=== PATIENT | female | born 1950 | race Caucasian/White ===

== ENCOUNTER → 2016-09-02 | Outpatient (CLI) | payer MEDICARE, BC ==
[~2016-09-02] MED LIST: CALC600T86 PO; MULT-185 PO
--- NOTE | 2016-09-02 16:23 | DI ---
EXAM: MRI LUMBAR SPINE W/O CONTRAST LOCATION OF DICTATION: [place] HISTORY: ITS.REASON: M54.16 RADICULOPATHY COMPARISON: No prior studies available for comparison. TECHNIQUE: Multiple contiguous axial and sagittal MRI images and sequences were obtained of the lumbar spine without contrast. FINDINGS: There is preservation of lumbar lordosis. There is no evidence for subluxation. There are no acute fractures. Vertebral body height is maintained. Mild Modic type changes are demonstrated at the L1-2 level. There is multilevel degenerative disc disease with loss of disc space height and signal.The prevertebral and paraspinal soft tissues are within normal limits. The conus medullaris extends to the L1-L2 level. There is a nonspecific 1.6 cm hypointense nodule involving the posterior aspect of the right kidney. The signal characteristics are not typical for a cyst. Recommend renal ultrasound to further evaluate and exclude neoplasm. Segmental analysis: At the T12-L1 level there is a central disc protrusion resulting in moderate effacement of the ventral thecal sac and spinal cord and moderate central spinal stenosis. At the L1-L2 level there is broad-based disc bulge and facet arthropathy. There is no significant central spinal stenosis or neuroforaminal stenosis. At the L2-3 level there is a broad-based disc bulge and facet arthropathy. There is flattening of the ventral thecal sac. The findings result in mild to moderate central spinal stenosis and mild bilateral neuroforaminal narrowing. At the L3-4 level there is broad-based disc bulge and facet arthropathy as well as ligamentum flavum thickening. There is moderate central spinal stenosis and left neuroforaminal stenosis and mild right neuroforaminal stenosis. At the L4-5 level there is broad-based disc bulge and facet arthropathy. There is moderate to marked left neuroforaminal stenosis and [id number] right neuroforaminal stenosis. At the L5-S1 level there is broad-based disc bulging and facet arthropathy. There is moderate bilateral neuroforaminal stenosis. IMPRESSION: 1. There is normal alignment of the lumbar spine. No subluxation or fracture deformity. 2. There is multilevel degenerative disease and facet arthropathy with associated neuroforaminal and central spinal stenosis as described above worse at the T12-L1, L3-L4, L4-5, and L5-S1 levels. 3. There is a 1.6 cm hypointense nodule involving the midportion of the right kidney posteriorly. The signal intensity is not typical for a cyst. A complex cyst could have this appearance. Recommend ultrasound of the right kidney to evaluate and exclude solid mass. .
== END ==
LOC: IMA 14:43
PROVIDERS: ATTEND Family Medicine Sports Medicine
DX: M48.06 Spinal stenosis, lumbar region (principal); M48.05 Spinal stenosis, thoracolumbar region; M47.896 Other spondylosis, lumbar region; M47.897 Other spondylosis, lumbosacral region; M51.35 Other intervertebral disc degeneration, thoracolumbar region; M51.36 Other intervertebral disc degeneration, lumbar region; M51.37 Other intervertebral disc degeneration, lumbosacral region; N28.9 Disorder of kidney and ureter, unspecified; M54.16 Radiculopathy, lumbar region

== ENCOUNTER → 2016-09-04 | Outpatient (CLI) | payer MEDICARE, BC ==
[~2016-09-04] MED LIST changes: +IOHEXOL 180 MG/ML 20ml INJECTION ONE; +LIDOCAINE 1% (10mg/ml) 5ml VIAL ONE; +MethylPREDNISolone ACETATE 40mg/1ml ONE
--- NOTE | 2016-09-04 10:19 | DI ---
Indication:ITS.REASON: N28.89; M54.16 RADICULOPATHY, LUMBAR REGION Procedure:EPIDURAL INJ.SPINE W FLUO CATH LUMBAR EPIDURAL INJECTION: The patient has low back and radicular pain. The patient has not had any previous epidurals. The details of the procedure, including the benefits, risks, and alternatives were explained to the patient. All of their questions were answered. They stated that they understood and wished to proceed. Informed consent was then obtained. A pre-procedural timeout was performed to confirm the correct patient and procedure. Utilizing aseptic technique, local lidocaine anesthetic, and fluoroscopic guidance throughout, a 22-gauge spinal needle was directed into the lumbar epidural space via an interlaminar approach at the L4-5 level. Contrast was injected to assure proper positioning of the needle tip. A fluoroscopic image was then taken and archived. Subsequently, 120 mg Depo-Medrol was injected into the epidural space. The patient tolerated the procedure well. IMPRESSION: Successful lumbar epidural steroid injection. Fluoroscopy dose: 15.07 mGy (Cumulative air kerma) Tito Zarco RPA/LEVY performed this under my personal supervision. .
--- NOTE | 2016-09-04 12:27 | DI ---
Indication: ITS.REASON: N28.89 Other specified disorders of kidney and ureter; M54.16 US RENAL: Comparison: Previous MRI lumbar spine 09/02/2016 Technique: Real-time and color flow imaging provided to both kidneys. Findings: Patient did not demonstrate a definitive lesion on the right side. It may just be that this is difficult to visualize. Therefore, CT scanning without and with intravenous contrast may be worthwhile for further evaluation. Both kidneys showed normal size and cortical appearance. No masses cysts or obstructive uropathy identified. Right kidney measures 10.1 x 3.0 x 5.7 cm and the left kidney measures 10.0 x 4.2 x 5.0 cm. Impression: Small lesion identified on the MRI was not clearly seen on the current renal ultrasound and therefore, perhaps CT scanning without and with contrast may be worthwhile for further evaluation. .
== END ==
LOC: IMA 08:01
PROVIDERS: ATTEND Family Medicine Sports Medicine
DX: N28.89 Other specified disorders of kidney and ureter (principal); M54.16 Radiculopathy, lumbar region; G95.89 Other specified diseases of spinal cord
CPT/HCPCS: 62323; 76770; J1030; Q9965

== ENCOUNTER → 2016-09-09 | Outpatient (CLI) | payer MEDICARE, BC ==
[~2016-09-09] MED LIST changes: -IOHEXOL 180 MG/ML 20ml INJECTION ONE; +IOHEXOL 300 MG/ML 100ml INJECTION ONE; -LIDOCAINE 1% (10mg/ml) 5ml VIAL ONE; -MethylPREDNISolone ACETATE 40mg/1ml ONE; +NORMAL SALINE 0 ML ONE; +NORMAL SALINE 100 ML ONE; +SALINE FLUSH 10ml SYRINGE ONE
[2016-09-09 08:19] LABS: CREATININE 0.8 MG/DL (0.7-1.2)
--- NOTE | 2016-09-09 09:52 | DI ---
Indication: ITS.REASON: N28.89 Other specified disorders of kidney and ureter PROCEDURE: CT ABDOMEN W/WO CONTRAST and CT pelvis with contrast: Encounter: Initial Comparison: MRI lumbar spine dated September 02, 2016 Technique: Axial CT images were performed through the abdomen before and after the administration of intravenous contrast. Postcontrast CT imaging of the pelvis was also performed. Coronal and sagittal two-dimensional reformats. Automated Exposure Control and Iterative Reconstruction dose reducing techniques were utilized. Contrast: Omnipaque 300 89 mL Findings: The lung bases are clear. Noncontrast images of the abdomen show no evidence of renal or proximal ureteral stone disease. Postcontrast imaging shows normal enhancement of the liver without mass lesion or bile duct dilatation. Tiny right hepatic cyst. The gallbladder, spleen, pancreas and adrenal glands are within normal limits. The left kidney is normal. The right kidney shows a 1.6 cm low attenuation lesion in the medial posterior aspect of the lower pole. This shows some small internal calcifications on the noncontrast images. There is borderline enhancement changing from 47 to 59 Hounsfield units between the noncontrast and postcontrast images. This does not enhance as much as the surrounding normal renal cortex and parenchyma. The bladder appears normal. Uterus is unremarkable. No free fluid or evidence of a bowel obstruction. Delayed postcontrast imaging shows continued lower attenuation within the right renal lesion measuring 64 Hounsfield units. Bone windows show degenerative change in the spine. Impression: Borderline enhancing right renal lesion with some intrinsic areas of calcification. This could represent a proteinaceous and calcium containing complex cyst or less likely neoplasm. Recommend short-term follow-up CT in 3-6 months to evaluate for stability. A contrast enhanced abdominal MRI could also be performed for additional diagnostic information. .
== END ==
LOC: IMA 07:37
PROVIDERS: ATTEND Family Medicine Sports Medicine
DX: N28.89 Other specified disorders of kidney and ureter (principal)
CPT/HCPCS: 36415; 72193; 74170; 82565; 84520; J7050; Q9967

== ENCOUNTER → 2016-09-19 | Outpatient (CLI) | payer MEDICARE, BC ==
[~2016-09-19] MED LIST changes: +IOHEXOL 180 MG/ML 20ml INJECTION ONE; -IOHEXOL 300 MG/ML 100ml INJECTION ONE; +LIDOCAINE 1% (10mg/ml) 5ml VIAL ONE; +MethylPREDNISolone ACETATE 40mg/1ml ONE; -NORMAL SALINE 0 ML ONE; -NORMAL SALINE 100 ML ONE; -SALINE FLUSH 10ml SYRINGE ONE
--- NOTE | 2016-09-19 09:43 | DI ---
Indication:ITS.REASON: M54.16 RADICULOPATHY Procedure:EPIDURAL INJ.SPINE W FLUO CATH LUMBAR EPIDURAL INJECTION: The patient is having left leg weakness. The patient has had a previous epidural that provided moderate improvement in leg strength. The details of the procedure, including the benefits, risks, and alternatives were explained to the patient. All of their questions were answered. They stated that they understood and wished to proceed. Informed consent was then obtained. A pre-procedural timeout was performed to confirm the correct patient and procedure. Utilizing aseptic technique, local lidocaine anesthetic, and fluoroscopic guidance throughout, a 22-gauge spinal needle was directed into the lumbar epidural space via an interlaminar approach at the L4-5 level. Contrast was injected to assure proper positioning of the needle tip. A fluoroscopic image was then taken and archived. Subsequently, 120 mg Depo-Medrol was injected into the epidural space. The patient tolerated the procedure well. IMPRESSION: Successful lumbar epidural steroid injection. Fluoroscopy dose: 8.21 mGy (Cumulative air kerma) Tito Zarco RPA/LEVY performed this under my personal supervision. .
== END ==
LOC: IMA 08:08
PROVIDERS: ATTEND Family Medicine Sports Medicine
DX: M54.16 Radiculopathy, lumbar region (principal); M62.81 Muscle weakness (generalized)
CPT/HCPCS: 62323; J1030; Q9965

== ENCOUNTER → 2016-10-02 | Outpatient (CLI) | payer MEDICARE, BC ==
--- NOTE | 2016-10-02 08:49 | DI ---
Indication:ITS.REASON: M54.16 RADICULOPATHY, LUMBAR REGION Procedure:EPIDURAL INJ.SPINE W FLUO CATH LUMBAR EPIDURAL INJECTION: The patient is having left leg weakness. She has had two previous lumbar epidural injections that provided a moderate improvement in leg strength. The details of the procedure, including the benefits, risks, and alternatives were explained to the patient. All of their questions were answered. They stated that they understood and wished to proceed. Informed consent was then obtained. A pre-procedural timeout was performed to confirm the correct patient and procedure. Utilizing aseptic technique, local lidocaine anesthetic, and fluoroscopic guidance throughout, a 22-gauge spinal needle was directed into the lumbar epidural space via an interlaminar approach at the L4-5 level. Contrast was injected to assure proper positioning of the needle tip. A fluoroscopic image was then taken and archived. Subsequently, 120 mg Depo-Medrol was injected into the epidural space. The patient tolerated the procedure well. IMPRESSION: Successful lumbar epidural steroid injection. Fluoroscopy dose: 12.02 mGy (Cumulative air kerma) Tito Zarco RPA/LEVY performed this under my personal supervision. .
== END ==
LOC: IMA 07:37
PROVIDERS: ATTEND Family Medicine Sports Medicine
DX: M54.16 Radiculopathy, lumbar region (principal)
CPT/HCPCS: 62323; J1030; Q9965

== ENCOUNTER → 2016-10-31 | Outpatient (CLI) | payer MEDICARE, BC ==
[~2016-10-31] MED LIST changes: -IOHEXOL 180 MG/ML 20ml INJECTION ONE; -LIDOCAINE 1% (10mg/ml) 5ml VIAL ONE; -MethylPREDNISolone ACETATE 40mg/1ml ONE
== END ==
LOC: WC.BC 08:27
DX: Z12.31 Encounter for screening mammogram for malignant neoplasm of breast (principal); N64.59 Other signs and symptoms in breast
CPT/HCPCS: 77063; G0202